=== PATIENT | male | born 1990 | race Caucasian/White ===

== ENCOUNTER 2019-04-21 16:28 | Inpatient (IN) ==
[2019-04-21] MEDS ORDERED: PHENOBARBITAL IV PRN (17:12)
[2019-04-21] MEDS ORDERED: D5W 1,000 ML IV PRN (17:12)
[2019-04-21] MEDS ORDERED: DESYREL PO PRN (17:12)
[2019-04-21] MEDS ORDERED: ZOFRAN IV PRN (17:12)
[2019-04-21] MEDS ORDERED: BENTYL PO PRN (17:12)
[2019-04-21] MEDS ORDERED: ZOFRAN ODT PO PRN (17:12)
[2019-04-21] MEDS ORDERED: SENOKOT PO PRN (17:12)
[2019-04-21] MEDS ORDERED: SINEMET 25/100 PO PRN (17:12)
[2019-04-21] MEDS ORDERED: MAALOX PLUS LIQUID PO PRN (17:12)
[2019-04-21] MEDS ORDERED: DULCOLAX PR PRN (17:12)
[2019-04-21] MEDS ORDERED: IMODIUM PO PRN (17:12)
[2019-04-21] MEDS ORDERED: TUBERSOL ID ONE (18:00)
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
[2019-04-21] MEDS: ROBAXIN PO PRN (18:33)
[2019-04-21] MEDS: ATARAX PO PRN (18:33)
[2019-04-21] MEDS: NICODERM PATCH TD PRN (18:35)
[2019-04-21 19:10] LABS: HEMATOCRIT 38.1 % (42.0-52.0); HEMOGLOBIN 12.9 g/dL (14.0-18.0); MCH 29.4 PG (27-31); MCHC 33.9 g/dL (33-37); MCV 86.8 FL (81-99); MPV 9.7 FL (7.4-10.4); RBC 4.39 XMIL (4.7-6.1); RDW 12.2 % (11.5-14.5); WBC 10.28 X1000 (4.8-10.8)
[2019-04-21 19:14] LABS: AMYLASE 59 U/L (20-200); LIPASE 151 U/L (13-60)
[2019-04-21 19:16] LABS: AGAP 10; ALBUMIN 3.9 g/dL (3.5-5.0); ALKALINE PHOSPHATASE 66 U/L (32-122); BUN 12 mg/dL (8-22); CALCIUM 8.7 mg/dL (8.8-10.2); CHLORIDE 101 mmol/L (98-107); COSMO 278; CREATININE 0.6 mg/dL (0.7-1.2); ESTIMATED GFR > 60; GLUCOSE 108 mg/dL (70-104); GOT 12 U/L (10-34); GPT 8 U/L (10-44); INR 1.01; POTASSIUM 4.2 mmol/L (3.5-5.1); PROTIME 13.8 Seconds (11.0-16.0); SODIUM 139 mmol/L (136-145); TCO2 28 mmol/L (25-35); TOTAL PROTEIN 6.2 g/dL (6.3-8.3)
[2019-04-21 19:47] LABS: URINE SOURCE VOIDED
[2019-04-21] MEDS: SUBOXONE 2 MG/0.5 MG FILM SL SCH (19:51)
[2019-04-21 19:59] LABS: BILIRUBIN URINE NEGATIVE (NEGATIVE); BLOOD URINE NEGATIVE (NEGATIVE); CLARITY CLEAR (CLEAR); COLOR YELLOW; GLUCOSE URINE NEGATIVE (NEGATIVE); KETONE URINE TRACE mg/dL (NEGATIVE); LEUKOCYTES URINE TRACE (NEGATIVE); NITRITE URINE NEGATIVE (NEGATIVE); PH URINE 6.5; PROTEIN URINE NEGATIVE (NEGATIVE); UROBILINOGEN URINE NORMAL
[2019-04-21 20:03] LABS: URINE BACTERIA NEGATIVE /HFP; URINE CAST NONE SEEN /LPF; URINE CRYSTAL NONE SEEN /HPF; URINE EPITHELIAL CELLS <10 /HPF (<10); URINE RBC <10 /HPF (<10); URINE WBC <10 /HPF (<10); URINE YEAST NONE SEEN /HPF
[2019-04-21 20:07] LABS: UR AMPHETAMINES QUAL PRESUMPTIVE POSITIVE (NONE DETECT); UR BARBITUATES QUAL NONE DETECTED (NONE DETECT); UR BENZODIAZEPIN QUAL NONE DETECTED (NONE DETECT); UR COCAINE QUAL NONE DETECTED (NONE DETECT); UR METHADONE QUAL NONE DETECTED (NONE DETECT); UR METHAMPHETAMINE QUAL NONE DETECTED (NONE DETECT)
[2019-04-21 20:08] LABS: UR CANNABINOIDS QUAL PRESUMPTIVE POSITIVE (NONE DETECT); UR OPIATES QUAL NONE DETECTED (NONE DETECT); UR OXYCODONE QUAL NONE DETECTED (NONE DETECT); UR PCP QUAL NONE DETECTED (NONE DETECT); UR PROPOXYPHENE QUAL NONE DETECTED (NONE DETECT); UR TCA QUAL NONE DETECTED (NONE DETECT)
[2019-04-22] MEDS: LIBRIUM PO PRN ×2 (04:19→16:54)
[2019-04-22] MEDS: MOTRIN PO PRN (04:19)
[2019-04-22] MEDS: NICODERM PATCH TD PRN ×2 (05:28→18:55)
[2019-04-22] MEDS: ATARAX PO PRN ×2 (05:32→22:07)
[2019-04-22] MEDS: PROTONIX PO SCH (06:15)
[2019-04-22] MEDS: TYLENOL PO PRN ×2 (08:00→14:15)
[2019-04-22] MEDS: ROBAXIN PO PRN ×2 (08:00→16:54)
[2019-04-22] MEDS: FOLIC ACID PO SCH (08:01)
[2019-04-22] MEDS: SUBOXONE 2 MG/0.5 MG FILM SL SCH ×2 (08:01→19:39)
[2019-04-22] MEDS: VITAMIN B-1 PO SCH (08:01)
[2019-04-22] MEDS: THERA M PLUS PO SCH (08:01)
--- NOTE | 2019-04-22 14:03 | PROGRESS NOTE ---
DATE: 04/22/2019 SUBJECTIVE: Patient currently has no complaints. States overall that he is feeling better. Denies any chest pain. States his muscle aches have improved. He did eat breakfast. PHYSICAL EXAMINATION: Vital Signs: Reviewed. Temperature 98 degrees, pulse , respiratory 18, blood pressure 119/65. General: Patient is awake, alert, currently in no distress. HEENT: Normocephalic. Neck: Supple. Cardiovascular: Regular rate. Chest: Clear. Abdomen: Soft. Extremities: Moves all extremities. Neurologic: No changes. ASSESSMENT: 1. Nausea and vomiting. 2. Abdominal pain. 3. Myalgias. 4. Paresthesias. 5. Paroxysmal sweating. 6. Opiate abuse withdrawal and admit for stabilization. PLAN: We will continue patient in the hospital. Continue Suboxone. Will wean if tolerated. Certainly expect that he will need to go home on Suboxone given he has failed multiple times attempting to get and stay clean. We will continue to follow. Continue counseling. Continue education. Further orders as needed. cc: Pollo Orteag MD MTDD
[2019-04-22] MEDS: SEROQUEL PO PRN (22:04)
[2019-04-23] MEDS: PROTONIX PO SCH (06:07)
[2019-04-23] MEDS: SUBOXONE 2 MG/0.5 MG FILM SL SCH ×2 (08:29→21:09)
[2019-04-23] MEDS: VITAMIN B-1 PO SCH (08:30)
[2019-04-23] MEDS: THERA M PLUS PO SCH (08:30)
[2019-04-23] MEDS: FOLIC ACID PO SCH (08:30)
[2019-04-23] MEDS: MOTRIN PO PRN ×2 (08:44→17:10)
[2019-04-23] MEDS: ROBAXIN PO PRN ×2 (08:44→17:10)
[2019-04-23] MEDS: LIBRIUM PO PRN ×3 (08:44→21:09)
[2019-04-23] MEDS ORDERED: SUBOXONE 2 MG/0.5 MG FILM SL ONE (11:54)
[2019-04-23] MEDS: ATARAX PO PRN (14:16)
[2019-04-23] MEDS: NICODERM PATCH TD PRN (17:25)
[2019-04-23] MEDS: SEROQUEL PO PRN (21:09)
--- NOTE | 2019-04-23 23:52 | PROGRESS NOTE ---
DATE: 04/23/2019 SUBJECTIVE: Patient notes this morning that he is feeling fine. Notes he feels much better on the 4 mg than he has felt in a long time. Denies any chest pain, palpitation. Denies any fevers. PHYSICAL EXAMINATION: Vital Signs: Reviewed. Temperature 97 degrees, pulse 76, respiratory 18, BP 133/60. General: Patient is pleasant. He is awake, alert. He is in no distress. HEENT: Normocephalic. Neck: Supple. Cardiovascular: Regular rate. Chest: Clear. Abdomen: Soft. Extremities: Moves all extremities. Neurologic: No focal changes. ASSESSMENT: 1. Nausea, vomiting. 2. Abdominal pain. 3. Myalgias. 4. Paresthesias. 5. Paroxysmal sweating. 6. Opiate abuse withdrawal and stabilization. PLAN: We will try to wean his Suboxone. Will decrease the dosing to 2 mg and follow. Addendum: The patient noted on 2 mg that he had increased symptoms of withdrawal that started around noon. Therefore, we restarted the 4 mg and tonight he states one the 4 mg he is feeling back to normal. cc: Pollo Ortega MD
[2019-04-24] MEDS: PROTONIX PO SCH (06:11)
[2019-04-24 09:06] VITALS: BP 150/72
[2019-04-24] MEDS: ROBAXIN PO PRN (09:07)
[2019-04-24] MEDS: SUBOXONE 2 MG/0.5 MG FILM SL SCH (09:07)
[2019-04-24] MEDS: FOLIC ACID PO SCH (09:07)
[2019-04-24] MEDS: MOTRIN PO PRN (09:07)
[2019-04-24] MEDS: THERA M PLUS PO SCH (09:07)
[2019-04-24] MEDS: VITAMIN B-1 PO SCH (09:07)
[2019-04-24] MEDS: ATARAX PO PRN (09:07)
--- NOTE | 2019-04-25 03:14 | DISCHARGE SUMMARY ---
ADMISSION DATE: 04/21/2019 DISCHARGE DATE: 04/24/2019 DISCHARGE DIAGNOSES: 1. Nausea, vomiting. 2. Abdominal pain. 3. Anxiety. 4. Paresthesias. 5. Paroxysmal sweating. 6. Opiate abuse, withdrawal and admit for stabilization. CONSULTATIONS: None. PROCEDURES: None. BRIEF HOSPITAL COURSE: The patient is a 29-year-old male who unfortunately has a known history of polysubstance use and abuse. Most recently, he has been abusing opiates. He was admitted to the hospital secondary to withdrawal symptoms, was placed on Suboxone and continued to wean. He did tolerate 4 mg twice a day. However, when weaning down below that he noted that his withdrawal symptoms have started again and he was afraid he would begin abusing. He was watched in the hospital 1 more night. Thankfully, after going back up to the 4 mg twice daily dose of Suboxone he states that he feels better than he has in quite some time and all of his withdrawal symptoms have essentially disappeared. DISPOSITION: Patient to be discharged home. He will follow up outpatient with treatment facility of choice. Patient was instructed that he will need to follow up outpatient with treatment facility of choice. Will need to follow up with outpatient life counseling as well as drug counseling. Discussed needs to avoid all persons, places, situations which has been using and abusing in the past. cc: Pollo Ortega MD
== END 2019-04-24 11:44 | disposition home or self-care (01) | DRG 897 ==
LOC: P.DIRADM 16:32 → P.MEDSURG 17:09
PROVIDERS: ADMIT Family Medicine; ATTEND Family Medicine
CPT/HCPCS: 80053; 80104; 80301; 80305; 80307; 80320; 81001; 82055; 82150; 83690; 85027; 85610; 86580; A9270; G0431; G0434; G0477; G0480; G6040